=== PATIENT | female | born 1980 | race Asian ===

== ENCOUNTER 2020-10-15 16:44 | Emergency (ER) | payer SELFPAY ==
[~2020-10-15] VITALS: Ht 152.4 cm; Wt 46.0 kg
[2020-10-15 17:14] LABS: MICROSCOPIC INDICATED
[2020-10-15 17:14] LABS: BASOPHILS % (AUTO) 0 % (0-1); EOSINOPHILS % (AUTO) 0 % (1-7); LYMPHOCYTES % (AUTO) 14 % (22-44); MEAN CORPUSCULAR HEMOGLOBIN 30.3 pg (27.0-34.8); MEAN CORPUSCULAR HGB CONC 33.2 g/dL (32.4-35.8); MEAN PLATELET VOLUME 8.2 fL (7.4-10.4); MONOCYTES % (AUTO) 5 % (2-9); NEUTROPHILS % (AUTO) 81 % (42-75); PLATELET COUNT 320 x10^3/uL (130-400); RED BLOOD COUNT 4.36 x10^6/uL (3.82-5.3); RED CELL DISTRIBUTION WIDTH 13.5 % (9.6-15.2)
[2020-10-15 17:21] LABS: MD NO
--- NOTE | 2020-10-15 17:23 | NUR ---
PT C/O PAIN IN LEFT LOWER ABD. PT DENIES NAUSEA, VOMITING, OR DIARRHEA. PT HAS HAD PAIN SINCE LAST NIGHT. PAIN IS 5/10. PER EMS PT STATED SHE HAD A "DEVIL INSIDE' HER. PT ALSO STATES SHE IS HAVING AUDIBLE AND VISUAL HALLUCINATIONS.
[2020-10-15 17:24] LABS: ALBUMIN 3.6 g/dL (3.4-5.0); ANION GAP 5 mmol/L (5-15); CALCIUM 8.3 mg/dL (8.5-10.1); CHLORIDE 108 mmol/L (98-107)
[2020-10-15 17:27] LABS: SALICYLATE LEVEL < 1.7 mg/dL (2.8-20.0)
[2020-10-15 17:30] LABS: ALANINE AMINOTRANSFERASE 14 U/L (12-78); ALKALINE PHOSPHATASE 85 U/L (45-117); BILIRUBIN,TOTAL 0.4 mg/dL (0.2-1.0); TOTAL PROTEIN 7.6 g/dL (6.4-8.2)
--- NOTE | 2020-10-15 17:40 | NUR ---
THIS RN AT BEDSIDE CHAPARONE WHILE VAGINAL US IS COMPLETED.
--- NOTE | 2020-10-15 18:12 | NUR ---
vaginal us completed, pt tollerated well. VSS, CALL LIGHT W/I REACH
--- NOTE | 2020-10-15 19:18 | NUR ---
RECEIVED BS REPORT FROM WINDY SPENCE TO ASSUME CARE OF PT. AT THIS TIME. PT. RESTING ON GURNEY WITH TV ON. PT. DENEIS NEEDS AT THIS TIME. SAFETY MEASUERS OBSERVED.
--- NOTE | 2020-10-15 19:26 | NUR ---
CALLED LAB TO ASK ABOUT URINE DRUG SCREEN; PER LAB NO URINE LEFT TO RUN DRUG SCREEN. WILL RE-COLLECT.
--- NOTE | 2020-10-15 19:41 | NUR ---
PT. CALLING FOR SAFE RIDE HOME FOR D/C.
[2020-10-15 19:55] VITALS: BP 109/71
== END 2020-10-15 19:56 | disposition home or self-care (01) ==
LOC: ED 19:50
DX: R10.2 Pelvic and perineal pain (principal); F28 Other psychotic disorder not due to a substance or known physiological condition; R10.32 Left lower quadrant pain
CPT/HCPCS: 36415; 76830; 80053; 80307; 81001; 84703; 85025; 87086; 99284